=== PATIENT | male | born 1990 | race Caucasian/White ===

== ENCOUNTER 2019-05-02 12:48 | Emergency (ER) | payer BC ==
--- NOTE | 2019-05-02 14:01 | ER ---
Nurse's Notes [facility] Name: Parrish Salinas Age: 28 yrs Sex: Male : 1990 Arrival Date: 05/02/2019 Time: 12:53 Bed 17 Private MD: Diagnosis: Abrasion of left upper arm;Abrasion of unspecified part of neck;Hyperventilation Presentation: 05/02 13:15 Presenting complaint: Patient states: i was at work and a roller machine caught my tw2 vest, i ripped the vest off, i got some eve like rope like woodward on my LEFT arm and on the side of my neck, about an hour ago, i can move my LEFT arm but it is sore to raise it up, then i got this warmness in my stomach and got eve light headed, but about 20 minutes now it has gone away. Transition of care: patient was not received from another setting of care. Onset of symptoms was May 02, 2019. Risk Assessment: Do you want to hurt yourself or someone else? Patient reports no desire to harm self or others. Initial Sepsis Screen: Does the patient meet any 2 criteria? No. Patient's initial sepsis screen is negative. Does the patient have a suspected source of infection? No. Patient's initial sepsis screen is negative. Care prior to arrival: None. 13:15 Method Of Arrival: Ambulatory tw2 13:15 Acuity: MARISOL 4 tw2 Triage Assessment: 13:17 General: Appears in no apparent distress. slender, well groomed, Behavior is calm, tw2 cooperative, appropriate for age. Pain: Complains of pain in LEFT arm, shoulder, and neck. Musculoskeletal: Circulation, motion, and sensation intact. Range of motion: intact in all extremities. Injury Description: abrasion. Historical: - Allergies: 13:19 No Known Allergies; tw2 - Home Meds: 13:19 None [Active]; tw2 - PMHx: 13:19 None; tw2 - PSHx: 13:19 right knee; Tonsillectomy; Adenoids; Ear Tubes; tw2 - Immunization history:: Adult Immunizations. - Coronavirus screen:: The patient has NOT traveled to [place], [place], or [place] in the past 14 days. - Social history:: Smoking status: . - Family history:: not pertinent. - Ebola Screening: : Patient denies travel to an Ebola-affected area in the 21 days before illness onset No symptoms or risks identified at this time. - Hospitalizations: : No recent hospitalization is reported. Screenin:32 Abuse screen: Denies threats or abuse. Denies injuries from another. Nutritional sv screening: No deficits noted. Tuberculosis screening: No symptoms or risk factors identified. Fall Risk None identified. Assessment: 13:36 General: Appears in no apparent distress. comfortable, slender, well developed, sv Behavior is calm, cooperative, appropriate for age. General: Reports after the incident he felt weird and got numb all over his body and was unsure if he was having a panic attack. The feeling went away 5 mins before coming here. Pain: Complains of pain in back, left arm and neck Pain currently is 5 out of 10 on a pain scale. Quality of pain is described as burning, Is continuous. Neuro: Level of Consciousness is awake, alert, obeys commands, Oriented to person, place, time, situation, Moves all extremities. Full function Gait is steady. Respiratory: Respiratory effort is even, unlabored, Respiratory pattern is regular, symmetrical. Derm: Skin is pink, warm \T\ dry. Musculoskeletal: Range of motion: intact in all extremities. Injury Description: Abrasion sustained to left trapezius, right trapezius, left scapular area, right scapular area, left mid back, left lateral anterior chest, anterior aspect of left shoulder, left axilla, left bicep, left posterior aspect of neck and left lateral aspect of neck was sustained 30-60 minutes ago. 14:13 Reassessment: Patient appears in no apparent distress at this time. No changes from sv previously documented assessment. Patient and/or family updated on plan of care and expected duration. Pain level reassessed. Patient is alert, oriented x 3, equal unlabored respirations, skin warm/dry/pink. Vital Signs: 13:18 BP 135 / 93; Pulse 72; Resp 17; Temp 98.0(TE); Pulse Ox 100% on R/A; Weight 61.23 kg tw2 (R); Height 5 ft. 9 in. (175.26 cm); Pain 5/10; 13:18 Body Mass Index 19.94 (61.23 kg, 175.26 cm) tw2 13:18 when i move it tw2 ED Course: 12:53 Patient arrived in ED. mr 13:17 Triage completed. tw2 13:17 Arm band placed on. tw2 13:32 Sheree Luther RN is Primary Nurse. sv 13:32 Patient has correct armband on for positive identification. Bed in low position. Call sv light in reach. Door closed. Head of bed elevated. 13:40 Roberto Dejesus MD is Attending Physician. rn 14:13 No provider procedures requiring assistance completed. Patient did not have IV access sv during this emergency room visit. Administered Medications: No medications were administered Outcome: 14:00 Discharge ordered by . rn 14:14 Discharged to home ambulatory. sv 14:14 Condition: stable 14:14 Discharge instructions given to patient, Instructed on discharge instructions, follow up and referral plans. Demonstrated understanding of instructions, follow-up care. 14:14 Patient left the ED. sv Signatures: Sheree Luther, DARYA llamas Gabriel Nena mr Roberto Dejesus MD MD rn Wise, Tara, RN RN tw2
--- NOTE | 2019-05-02 14:02 | EDPHYS ---
Physician Documentation [facility] Name: Parrish Salinas Age: 28 yrs Sex: Male : 1990 Arrival Date: 05/02/2019 Time: 12:53 Bed 17 Private MD: ED Physician Roberto Dejesus HPI: 05/02 13:54 This 28 yrs old Male presents to ER via Ambulatory with complaints of Arm rn Injury, Numbness. 13:54 The patient or guardian complains of an abrasion. The complaints affect the anterior rn aspect of left shoulder and left bicep. Onset: The symptoms/episode began/occurred just prior to arrival. Associated signs and symptoms: Pertinent positives: numbness, tingling, Pertinent negatives: decreased range of motion, deformity, weakness. Severity of symptoms: At their worst the symptoms were moderate, in the emergency department the symptoms have resolved. Reports safety vest got caught in machinery, pulled him toward machine, cause scrapes/abrasions, but no crushing injury. Reports shortly after began to feel surge in adrenaline, breathing fast, then felt tingling and numbness of face/arms and legs that lasted approx 5 min. Now resolved. Does not feel like arm/shoulder broken. No medical problems. . Historical: - Allergies: 13:19 No Known Allergies; tw2 - Home Meds: 13:19 None [Active]; tw2 - PMHx: 13:19 None; tw2 - PSHx: 13:19 right knee; Tonsillectomy; Adenoids; Ear Tubes; tw2 - Immunization history:: Adult Immunizations. - Coronavirus screen:: The patient has NOT traveled to [place], [place], or [place] in the past 14 days. - Social history:: Smoking status: . - Family history:: not pertinent. - Ebola Screening: : Patient denies travel to an Ebola-affected area in the 21 days before illness onset No symptoms or risks identified at this time. - Hospitalizations: : No recent hospitalization is reported. ROS: 13:54 Constitutional: Negative for fever, chills, and weight loss, Eyes: Negative for injury, rn pain, redness, and discharge, Neck: Negative for pain, and swelling, Cardiovascular: Negative for chest pain, palpitations, and edema, Respiratory: Negative for shortness of breath, cough, wheezing, and pleuritic chest pain, Abdomen/GI: Negative for abdominal pain, nausea, vomiting, diarrhea, and constipation, Back: Negative for injury and pain, MS/Extremity: + left upper arm abrasion Skin: Negative for injury, rash, and discoloration, Neuro: Negative for headache, weakness, and seizure. Exam: 13:54 Constitutional: This is a well developed, well nourished patient who is awake, alert, rn and in no acute distress. Head/Face: Normocephalic, atraumatic. Eyes: Pupils equal round and reactive to light, extra-ocular motions intact. Lids and lashes normal. Conjunctiva and sclera are non-icteric and not injected. Cornea within normal limits. Periorbital areas with no swelling, redness, or edema. Neck: left neck linear abrasion Chest/axilla: Normal chest wall appearance and motion. Nontender with no deformity. No lesions are appreciated. Cardiovascular: Regular rate and rhythm. No pulse deficits. Respiratory: No increased work of breathing, no retractions or nasal flaring. MS/ Extremity: Pulses equal, no cyanosis. Neurovascular intact. Full, normal range of motion. Equal circumference. + linear abrasions left upper outer arm and shoulder. Neuro: Awake and alert, GCS 15, oriented to person, place, time, and situation. Cranial nerves II-XII grossly intact. Motor strength 5/5 in all extremities. Sensory grossly intact. Cerebellar exam normal. Vital Signs: 13:18 BP 135 / 93; Pulse 72; Resp 17; Temp 98.0(TE); Pulse Ox 100% on R/A; Weight 61.23 kg tw2 (R); Height 5 ft. 9 in. (175.26 cm); Pain 5/10; 13:18 Body Mass Index 19.94 (61.23 kg, 175.26 cm) tw2 13:18 when i move it tw2 MDM: 13:40 Patient medically screened. rn 13:54 Differential diagnosis: contusion, abrasion, hyperventilation. Data reviewed: vital rn signs, nurses notes, and as a result, I will discharge patient. Counseling: I had a detailed discussion with the patient and/or guardian regarding: the historical points, exam findings, and any diagnostic results supporting the discharge/admit diagnosis, the need for outpatient follow up, to return to the emergency department if symptoms worsen or persist or if there are any questions or concerns that arise at home. Special discussion: I discussed with the patient/guardian in detail that at this point there is no indication for admission to the hospital. It is understood, however, that if the symptoms persist or worsen the patient needs to return immediately for re-evaluation. ED course: Resolution of symptoms prior to arrival, no need for imaging at this point, consistent with hyperventilation syndrome. . Administered Medications: No medications were administered Disposition: 05/02/19 14:00 Discharged to Home. Impression: Abrasion of left upper arm, Abrasion of unspecified part of neck, Hyperventilation. - Condition is Stable. - Discharge Instructions: Abrasion, Hyperventilation. - Medication Reconciliation Form, Thank You Letter, Antibiotic Education, Prescription Opioid Use form. - Follow up: Private Physician; When: As needed; Reason: Recheck today's complaints, Re-evaluation by your physician. - Problem is new. - Symptoms are resolved. Signatures: Sheree Luther RN RN sv Nieto, Roman, MD MD rn Wise, Tara, RN RN tw2 Corrections: (The following items were deleted from the chart) 14:14 14:00 05/02/2019 14:00 Discharged to Home. Impression: Abrasion of left upper arm; sv Abrasion of unspecified part of neck; Hyperventilation. Condition is Stable. Forms are Medication Reconciliation Form, Thank You Letter, Antibiotic Education, Prescription Opioid Use. Follow up: Private Physician; When: As needed; Reason: Recheck today's complaints, Re-evaluation by your physician. Problem is new. Symptoms are resolved. rn
[2019-05-02 14:29] VITALS: BP 135/93; TEMP 98; O2SAT 100
== END 2019-05-02 14:14 | disposition home or self-care (01) ==
LOC: ER 12:48
DX: S40.812A Abrasion of left upper arm, initial encounter (principal); S10.91XA Abrasion of unspecified part of neck, initial encounter; X50.9XXA Other and unspecified overexertion or strenuous movements or postures, initial encounter; Y93.89 Activity, other specified; Y92.69 Other specified industrial and construction area as the place of occurrence of the external cause; Y99.0 Civilian activity done for income or pay
CPT/HCPCS: 99282